=== PATIENT | female | born 1935 | race African-American/Black ===

== ENCOUNTER → 2018-05-06 | Outpatient (CLI) | payer MEDICARE, BC | END | disposition home or self-care (01) | LOC: MRI 14:44 | PROVIDERS: ATTEND Psychiatry & Neurology Neurology | DX: I67.82 Cerebral ischemia (principal); G31.89 Other specified degenerative diseases of nervous system; I10 Essential (primary) hypertension; E11.9 Type 2 diabetes mellitus without complications | CPT/HCPCS: 70551 ==

== ENCOUNTER 2019-03-23 02:46 | Emergency (ER) | payer MEDICARE, BC ==
[~2019-03-23] VITALS: Ht 167.6 cm; Wt 78.0 kg
[2019-03-23] MEDS ORDERED: KETOROLAC 30MG/ML VIAL IV STA (03:25)
[2019-03-23 03:45] LABS: BASOPHILS % 1.8 % (0.0-2.0); EOSINOPHILS % 4.7 % (0.0-5.0); HEMATOCRIT. 36.5 % (36.0-48.0); MEAN CORPUSCULAR HEMOGLOBIN 26.9 pg (28.0-32.0); MEAN CORPUSCULAR VOLUME 81.5 fL (81.0-99.0); MEAN PLATELET VOLUME 7.2 fl (7.4-10.4); MONOCYTES % 7.1 % (2.0-8.0); NEUTROPHILS % 36.4 % (40.0-76.0); PLATELET 267 x1000/uL (130-400); RED BLOOD CELL COUNT 4.48 mill/uL (4.2-5.4); RED CELL DISTRIBUTION WIDTH 14.9 % (11.6-14.6)
[2019-03-23 03:46] LABS: CHLORIDE 108 mEq/L (98-107)
[2019-03-23 04:34] LABS: CLARITY URINE CLEAR (CLEAR); COLOR URINE DARK YELLOW (YELLOW); KETONES URINE NEGATIVE (NEGATIVE); LEUKOCYTE ESTERASE URINE TRACE (NEGATIVE); NITRITE URINE NEGATIVE (NEGATIVE); OCCULT BLOOD URINE NEGATIVE (NEGATIVE); PROTEIN URINE TRACE (NEGATIVE); SPECIFIC GRAVITY URINE 1.008 (1.005-1.030); UROBILINOGEN URINE 0.2 E.U./dL (0.2-1.0)
[2019-03-23 07:00] VITALS: BP 145/65
== END 2019-03-23 07:00 | disposition home or self-care (01) ==
LOC: ER 03:16
DX: R10.9 Unspecified abdominal pain (principal); E11.9 Type 2 diabetes mellitus without complications; I10 Essential (primary) hypertension; Z98.890 Other specified postprocedural states
CPT/HCPCS: 36415; 74176; 76700; 80053; 81003; 83690; 85025; 93005; 99284; J1885

== ENCOUNTER 2019-09-07 15:03 | Emergency (ER) | payer BC, MEDICARE ==
[~2019-09-07] VITALS: Ht 165.1 cm; Wt 75.0 kg
[2019-09-07] MEDS ORDERED: ACETAMINOPHEN 325MG TABLET PO ONE (16:15)
[2019-09-07 18:33] VITALS: BP 131/99
== END 2019-09-07 18:54 | disposition home or self-care (01) ==
LOC: ER 15:03
DX: S09.8XXA Other specified injuries of head, initial encounter (principal); S00.83XA Contusion of other part of head, initial encounter; I10 Essential (primary) hypertension; E11.9 Type 2 diabetes mellitus without complications; W01.0XXA Fall on same level from slipping, tripping and stumbling without subsequent striking against object, initial encounter; Y93.01 Activity, walking, marching and hiking; Y92.9 Unspecified place or not applicable; Y99.9 Unspecified external cause status
CPT/HCPCS: 70486; 99284

== ENCOUNTER 2019-09-18 09:44 | Emergency (ER) | payer MEDICARE ==
[~2019-09-18] VITALS: Ht 165.1 cm; Wt 70.0 kg
[2019-09-18 10:09] VITALS: BP 160/74
[2019-09-18] MEDS ORDERED: ACETAMINOPHEN 325MG TABLET PO ONE (10:30)
== END 2019-09-18 11:51 | disposition home or self-care (01) ==
LOC: ER 09:44
DX: S13.9XXA Sprain of joints and ligaments of unspecified parts of neck, initial encounter (principal); S00.83XA Contusion of other part of head, initial encounter; M54.5 Low back pain; M25.552 Pain in left hip; I10 Essential (primary) hypertension; E11.9 Type 2 diabetes mellitus without complications; E89.0 Postprocedural hypothyroidism; W01.0XXA Fall on same level from slipping, tripping and stumbling without subsequent striking against object, initial encounter; Y93.89 Activity, other specified; Y92.480 Sidewalk as the place of occurrence of the external cause
CPT/HCPCS: 72100; 73502; 99284

== ENCOUNTER 2020-01-13 16:14 | Emergency (ER) | payer MEDICARE, BC ==
[~2020-01-13] VITALS: Ht 167.6 cm; Wt 70.4 kg
[2020-01-13] MEDS ORDERED: SODIUM CHLORIDE 0.9% 1,000 ML IV ONE (16:43)
[2020-01-13 16:58] LABS: CLARITY URINE CLEAR (CLEAR); COLOR URINE YELLOW (YELLOW); KETONES URINE NEGATIVE (NEGATIVE); LEUKOCYTE ESTERASE URINE TRACE (NEGATIVE); NITRITE URINE NEGATIVE (NEGATIVE); OCCULT BLOOD URINE NEGATIVE (NEGATIVE); PH URINE 6.5 (4.5-8.0); PROTEIN URINE NEGATIVE (NEGATIVE); SPECIFIC GRAVITY URINE 1.004 (1.005-1.030); UROBILINOGEN URINE 0.2 E.U./dL (0.2-1.0)
[2020-01-13 17:36] LABS: CHLORIDE 104 mEq/L (98-107)
[2020-01-13 17:37] LABS: BASOPHILS % 1.2 % (0.0-2.0); EOSINOPHILS % 3.5 % (0.0-5.0); HEMATOCRIT. 40.1 % (36.0-48.0); HEMOGLOBIN. 13.4 g/dL (12.0-16.0); LYMPHOCYTES % 38.9 % (20.0-50.0); MEAN CORPUSCULAR HEMOGLOBIN 27.9 pg (28.0-32.0); MEAN CORPUSCULAR VOLUME 83.7 fL (81.0-99.0); MEAN PLATELET VOLUME 8.2 fl (7.4-10.4); MONOCYTES % 7.4 % (2.0-8.0); PLATELET 238 x1000/uL (130-400); RED BLOOD CELL COUNT 4.79 mill/uL (4.2-5.4); RED CELL DISTRIBUTION WIDTH 14.7 % (11.6-14.6)
[2020-01-13 18:31] VITALS: BP 154/75
== END 2020-01-13 18:39 | disposition home or self-care (01) ==
LOC: ER 16:14
DX: E11.65 Type 2 diabetes mellitus with hyperglycemia (principal); R42 Dizziness and giddiness; I10 Essential (primary) hypertension; E89.0 Postprocedural hypothyroidism; Z79.84 Long term (current) use of oral hypoglycemic drugs
CPT/HCPCS: 36415; 71045; 80053; 81003; 82962; 85025; 93005; 96360; 99285; J7030

== ENCOUNTER 2020-12-22 02:51 | Emergency (ER) | payer BC, MEDICARE ==
[~2020-12-22] VITALS: Ht 162.6 cm; Wt 72.0 kg
[2020-12-22] MEDS ORDERED: KETOROLAC 60MG/2ML VIAL IM STA (03:24)
[2020-12-22 03:42] LABS: CLARITY URINE CLEAR (CLEAR); COLOR URINE YELLOW (YELLOW); KETONES URINE NEGATIVE (NEGATIVE); LEUKOCYTE ESTERASE URINE 1+ (NEGATIVE); NITRITE URINE NEGATIVE (NEGATIVE); OCCULT BLOOD URINE NEGATIVE (NEGATIVE); PH URINE 6.5 (4.5-8.0); PROTEIN URINE NEGATIVE (NEGATIVE); UROBILINOGEN URINE 0.2 E.U./dL (0.2-1.0)
[2020-12-22] MEDS ORDERED: AMOX-494 MT (06:23)
[2020-12-22] MEDS ORDERED: IBUP-2029 MT (06:24)
[2020-12-22 06:44] VITALS: BP 164/76
== END 2020-12-22 06:49 | disposition home or self-care (01) ==
LOC: ER 02:51
DX: R10.32 Left lower quadrant pain (principal); N30.90 Cystitis, unspecified without hematuria; E11.9 Type 2 diabetes mellitus without complications; I10 Essential (primary) hypertension
CPT/HCPCS: 74176; 81003; 93005; 99285

== ENCOUNTER 2021-07-02 08:30 | Emergency (ER) | payer BC, MEDICARE ==
[~2021-07-02] VITALS: Ht 167.6 cm; Wt 69.0 kg
[~2021-07-02 08:30] MED LIST: AMOX-494 MT; IBUP-2029 MT
[2021-07-02 10:01] LABS: BASOPHILS % 2.3 % (0.0-2.0); EOSINOPHILS % 5.7 % (0.0-5.0); HEMATOCRIT. 37.2 % (36.0-48.0); HEMOGLOBIN. 12.1 g/dL (12.0-16.0); LYMPHOCYTES % 38.9 % (20.0-50.0); MEAN CORPUSCULAR HEMOGLOBIN 26.9 pg (28.0-32.0); MEAN CORPUSCULAR VOLUME 82.6 fL (81.0-99.0); MEAN PLATELET VOLUME 7.7 fl (7.4-10.4); MONOCYTES % 8.7 % (2.0-8.0); NEUTROPHILS % 44.4 % (40.0-76.0); PLATELET 258 x1000/uL (130-400); RED CELL DISTRIBUTION WIDTH 14.6 % (11.6-14.6)
[2021-07-02 10:05] LABS: CHLORIDE 107 mEq/L (98-107)
[2021-07-02 12:46] VITALS: BP 101/62
[2021-07-02 12:54] LABS: CLARITY URINE CLEAR (CLEAR); COLOR URINE YELLOW (YELLOW); KETONES URINE NEGATIVE (NEGATIVE); LEUKOCYTE ESTERASE URINE NEGATIVE (NEGATIVE); NITRITE URINE NEGATIVE (NEGATIVE); OCCULT BLOOD URINE NEGATIVE (NEGATIVE); PH URINE 7.5 (4.5-8.0); PROTEIN URINE NEGATIVE (NEGATIVE); UROBILINOGEN URINE 0.2 E.U./dL (0.2-1.0)
== END 2021-07-02 13:55 | disposition left against medical advice (07) ==
LOC: ER 08:30
DX: R10.9 Unspecified abdominal pain (principal)
CPT/HCPCS: 36415; 74177; 80053; 81003; 83690; 84484; 85025; 99285; Q9967

== ENCOUNTER 2022-05-14 11:23 | Emergency (ER) | payer MEDICARE ==
[~2022-05-14] VITALS: Ht 167.6 cm; Wt 71.0 kg
[2022-05-14 13:32] LABS: CLARITY URINE CLEAR (CLEAR); COLOR URINE YELLOW (YELLOW); KETONES URINE NEGATIVE (NEGATIVE); LEUKOCYTE ESTERASE URINE TRACE (NEGATIVE); NITRITE URINE NEGATIVE (NEGATIVE); OCCULT BLOOD URINE NEGATIVE (NEGATIVE); PH URINE 6.5 (4.5-8.0); PROTEIN URINE TRACE (NEGATIVE); SPECIFIC GRAVITY URINE 1.009 (1.005-1.030); UROBILINOGEN URINE 0.2 E.U./dL (0.2-1.0)
[2022-05-14 13:37] LABS: CHLORIDE 104 mEq/L (98-107)
[2022-05-14 13:38] VITALS: BP 170/89
[2022-05-14 13:38] LABS: BASOPHILS % 0.9 % (0.0-2.0); EOSINOPHILS % 3.3 % (0.0-5.0); HEMATOCRIT. 38.8 % (36.0-48.0); HEMOGLOBIN. 12.2 g/dL (12.0-16.0); MEAN CORPUSCULAR HEMOGLOBIN 26.3 pg (28.0-32.0); MEAN CORPUSCULAR VOLUME 83.4 fL (81.0-99.0); MEAN PLATELET VOLUME 8.9 fl (7.4-10.4); MONOCYTES % 7.5 % (2.0-8.0); NEUTROPHILS % 58.3 % (40.0-76.0); PLATELET 259 x1000/uL (130-400); RED BLOOD CELL COUNT 4.65 mill/uL (4.2-5.4); RED CELL DISTRIBUTION WIDTH 15.4 % (11.6-14.6)
[2022-05-14 13:46] LABS: PROTHROMBIN TIME 10.4 sec (9.6-11.0)
[2022-05-14] MEDS ORDERED: MECLIZINE 25MG TABLET PO ONE (14:15)
== END 2022-05-14 16:06 | disposition home or self-care (01) ==
LOC: ER 11:23
DX: R42 Dizziness and giddiness (principal); E11.9 Type 2 diabetes mellitus without complications; I10 Essential (primary) hypertension; E03.9 Hypothyroidism, unspecified
CPT/HCPCS: 36415; 70450; 80053; 81003; 85025; 85610; 99284; J8597

== ENCOUNTER 2023-02-25 21:18 | Emergency (ER) | payer MEDICARE ==
[~2023-02-25] VITALS: Ht 167.6 cm; Wt 75.0 kg
[2023-02-25 21:30] VITALS: O2SAT 98
[2023-02-25] MEDS ORDERED: MORPHINE SULFATE 4 MG/ML CPJ (NOT FOR IM USE) IV STA (22:42)
[2023-02-25] MEDS ORDERED: ONDANSETRON HCL 4MG/2ML INJ IV STA (22:42)
[2023-02-25 23:05] LABS: BASOPHILS % 1.3 % (0.0-2.0); EOSINOPHILS % 2.9 % (0.0-5.0); HEMATOCRIT. 34.5 % (36.0-48.0); HEMOGLOBIN. 11.1 g/dL (12.0-16.0); LYMPHOCYTES % 33.3 % (20.0-50.0); MEAN CORPUSCULAR HEMOGLOBIN 26.4 pg (28.0-32.0); MEAN CORPUSCULAR VOLUME 82.1 fL (81.0-99.0); MEAN PLATELET VOLUME 7.2 fl (7.4-10.4); MONOCYTES % 6.5 % (2.0-8.0); PLATELET 256 x1000/uL (130-400); RED BLOOD CELL COUNT 4.21 mill/uL (4.2-5.4); RED CELL DISTRIBUTION WIDTH 15.5 % (11.6-14.6)
[2023-02-25 23:11] LABS: CHLORIDE 102 mEq/L (98-107)
[2023-02-26] MEDS ORDERED: ACETAMINOPHEN 325MG TABLET PO ONE (01:00)
[2023-02-26 04:00] VITALS: BP 154/76; PULSE 74; RESP 16; TEMP 98.1
== END 2023-02-26 04:15 | disposition home or self-care (01) ==
LOC: ER 21:18
DX: R51.9 Headache, unspecified (principal); I10 Essential (primary) hypertension; E11.9 Type 2 diabetes mellitus without complications
CPT/HCPCS: 36415; 71045; 80053; 85025; 99285

== ENCOUNTER 2023-10-18 23:08 | Emergency (ER) | payer MEDICARE ==
[~2023-10-18] VITALS: Ht 160 cm; Wt 69.0 kg
[2023-10-18 23:10] VITALS: BP 141/87; PULSE 80; RESP 12; TEMP 97.4
== END 2023-10-18 23:52 | disposition left against medical advice (07) ==
LOC: ER 23:08
DX: I10 Essential (primary) hypertension (principal); Z53.21 Procedure and treatment not carried out due to patient leaving prior to being seen by health care provider
CPT/HCPCS: 99281

== ENCOUNTER 2023-11-23 07:50 | Emergency (ER) | payer MEDICARE ==
[~2023-11-23] VITALS: Ht 167.6 cm; Wt 68.0 kg
[2023-11-23 07:52] VITALS: O2SAT 99
[2023-11-23 09:08] LABS: BASOPHILS % 0.8 % (0.0-2.0); DIFFERENTIAL COMMENT 0; EOSINOPHILS % 3.3 % (0.0-5.0); HEMATOCRIT. 35.4 % (36.0-48.0); HEMOGLOBIN. 11.6 g/dL (12.0-16.0); LYMPHOCYTES % 37.3 % (20.0-50.0); MEAN CORPUSCULAR HEMOGLOBIN 25.9 pg (28.0-32.0); MEAN CORPUSCULAR HGB CONC 32.7 g/dL (31.0-37.0); MEAN CORPUSCULAR VOLUME 79.4 fL (81.0-99.0); MEAN PLATELET VOLUME 7.7 fl (7.4-10.4); MONOCYTES % 6.8 % (2.0-8.0); NEUTROPHILS % 51.8 % (40.0-76.0); PLATELET 279 x1000/uL (130-400); RED BLOOD CELL COUNT 4.46 mill/uL (4.2-5.4); WHITE BLOOD COUNT 4.2 x1000/uL (4.5-11.0)
[2023-11-23 09:21] LABS: INR 0.9
[2023-11-23 09:27] LABS: ALANINE AMINOTRANSFERASE 11 IU/L (10-49); ALBUMIN 4.4 g/dL (3.2-4.8); ASPARTATE AMINOTRANSFERASE 28 IU/L (<34); BILIRUBIN TOTAL 0.4 mg/dL (0.1-1.0); CALCIUM 9.4 mg/dL (8.7-10.4); CARBON DIOXIDE 29 mEq/L (21-32); CHLORIDE 103 mEq/L (98-107); CREATININE 0.8 mg/dL (0.6-1.0); GLUCOSE 112 mg/dL (70-105); POTASSIUM 4.1 mEq/L (3.5-5.1); PROTEIN TOTAL 6.8 g/dL (6.0-8.3); SODIUM 138 mEq/L (136-145); TROPONIN I HIGH SENSITIVITY 5 ng/L (3.0-34); UREA NITROGEN BLOOD 11 mg/dL (9-23)
[2023-11-23 10:29] LABS: CLARITY URINE CLEAR (CLEAR); COLOR URINE YELLOW (YELLOW); GLUCOSE URINE NEGATIVE (NEGATIVE); KETONES URINE NEGATIVE (NEGATIVE); LEUKOCYTE ESTERASE URINE TRACE (NEGATIVE); NITRITE URINE NEGATIVE (NEGATIVE); OCCULT BLOOD URINE NEGATIVE (NEGATIVE); PROTEIN URINE NEGATIVE (NEGATIVE); SPECIFIC GRAVITY URINE 1.006 (1.005-1.030); UROBILINOGEN URINE 0.2 E.U./dL (0.2-1.0)
[2023-11-23 10:48] LABS: BACTERIA URINE FEW; RBC URINE NONE SEEN /hpf (0-2); SQUAMOUS EPITHELIAL CELL URINE RARE /lpf (RARE/1+); WBC URINE 0-2 /hpf (0-2); YEAST URINE NONE SEEN
[2023-11-23] MEDS: ACETAMINOPHEN 325MG TABLET PO NR (12:45)
[2023-11-23] MEDS: IOHEXOL-350 100 ML BOTTLE ONE (14:01)
[2023-11-23 14:06] LABS: TROPONIN I HIGH SENSITIVITY 6 ng/L (3.0-34)
[2023-11-23 15:01] VITALS: BP 145/87; PULSE 79; RESP 16; TEMP 98.7
== END 2023-11-23 16:42 | disposition home or self-care (01) ==
LOC: ER 07:50
DX: M54.9 Dorsalgia, unspecified (principal); E11.9 Type 2 diabetes mellitus without complications; I10 Essential (primary) hypertension; Z88.0 Allergy status to penicillin; Z98.890 Other specified postprocedural states
CPT/HCPCS: 99285; 74174; 71275; 71045; 80053; 81003; 83880; 83690; 85025; 85610; 84484; 36415; 93005; Q9967